=== PATIENT | male | born 1950 | race Caucasian/White ===

== ENCOUNTER 2017-02-27 08:09 | Emergency (ER) | payer MEDICARE, OTHER ==
[2017-02-27 08:33] VITALS: BP 135/87
--- NOTE | 2017-02-27 08:39 | UC ---
Lower Extremity/Ankle HPI - HPI Summary HPI Summary: 67 YEAR OLD MALE PRESENTS WITH COMPLAINS OF LEFT ANKLE SWELLING/PAIN AFTER FALLING 6-12 FEET OFF A LADDER - History of Current Complaint Chief Complaint: UCTrauma Stated Complaint: LFET ANKLE PAIN Hx Obtained From: Patient Onset/Duration: Sudden Onset Severity Initially: Severe Severity Currently: Severe Pain Scale Used: 0-10 Numeric - 8 - Allergies/Home Medications Allergies/Adverse Reactions: Allergies Allergy/AdvReac Type Severity Reaction Status Date / Time No Known Allergies Allergy Verified 02/27/17 08:27 Home Medications: Home Medications Aspirin Low Dose CHEW TAB* [Aspirin Low Dose TAB*] 81 mg PO DAILY 02/27/17 [ History Confirmed 02/27/17] Benazepril (NF) [Lotensin (NF)] 5 mg PO DAILY 02/27/17 [History Confirmed ] Cinnamon 500 mg PO DAILY 02/27/17 [History Confirmed 02/27/17] Empagliflozin [Jardiance] 10 mg PO DAILY 02/27/17 [History Confirmed 02/27/17] LoraTADine TAB(NF) [Claritin 10 MG TAB(NF)] 10 mg PO DAILY 02/27/17 [History Confirmed 02/27/17] Multivitamins/Minerals TAB* [Thera M Plus TAB*] 1 tab PO DAILY 02/27/17 [ History Confirmed 02/27/17] Nateglinide(NF) [Starlix(NF)] 60 mg PO TID WITH MEALS 02/27/17 [History Confirmed 02/27/17] [place]-3 Fatty Acids [[place] 3] 1 cap PO DAILY 02/27/17 [History Confirmed ] Rosuvastatin (NF) [Crestor (NF)] 5 mg PO 1700 02/27/17 [History Confirmed ] PMH/Surg Hx/FS Hx/Imm Hx Previously Healthy: Yes - Surgical History Surgical History: Yes Surgery Procedure, Year, and Place: Nasal Polyps, ~2013 - Social History Alcohol Use: None Substance Use Type: None Smoking Status (MU): Former Smoker When Did the Patient Quit Smoking/Using Tobacco: ~1976 - Immunization History Most Recent Influenza Vaccination: Not the 2017/2017 Season Most Recent Tetanus Shot: ~2011 Review of Systems Constitutional: Negative Skin: Negative Eyes: Negative ENT: Negative Respiratory: Negative Cardiovascular: Negative Gastrointestinal: Negative Genitourinary: Negative Motor: Negative Neurovascular: Negative Musculoskeletal: Other: - LEFT ANKLE PAIN/SWELLING Neurological: Negative Psychological: Negative All Other Systems Reviewed And Are Negative: Yes Physical Exam Triage Information Reviewed: Yes Vital Signs: Initial Vital Signs Temp 36.7 C 02/27/17 08:22 Pulse 74 02/27/17 08:22 Resp 16 02/27/17 08:22 BP 135/87 02/27/17 08:22 Pulse Ox 98 02/27/17 08:22 Eye Exam: Normal ENT Exam: Normal Dental Exam: Normal Neck exam: Normal Neck: Positive: 1 Respiratory Exam: Normal Cardiovascular Exam: Normal Abdominal Exam: Normal Musculoskeletal: Positive: Other: - LEFT ANKLE PAIN/SWELLING Neurological Exam: Normal Psychological Exam: Normal Skin Exam: Normal Lower Extremity Course/Dx - Differential Dx/Diagnosis Provider Diagnoses: LEFT ANKLE PAIN/SWELLING. HEAD INJURY Discharge - Discharge Plan Condition: Stable Disposition: OTHER Discharge Disposition Comment: PATIENT SUGGESTED TO GO TO THE ER FOR FALL OF 6- 12 FEET FROM A LADDER WITH Patient Education Materials: Head Injury (ED) Referrals: Laine Pena PA [Primary Care Provider] - Additional Instructions: PATIENT SUGGESTED TO GO TO THE ER FOR FALL OF 6-12 FEET FROM A LADDER WITH RIGHT ANKLE/HEAD INJURIES.
== END 2017-02-27 08:50 ==
LOC: UCCORT 08:09
DX: S09.90XA Unspecified injury of head, initial encounter (principal); M25.472 Effusion, left ankle; W11.XXXA Fall on and from ladder, initial encounter; Z87.891 Personal history of nicotine dependence
CPT/HCPCS: 99212; G0463